=== PATIENT | female | born 1970 | race Hispanic/Latino ===

== ENCOUNTER 2017-06-08 01:53 | Emergency (ER) | payer SELFPAY ==
[~2017-06-08] VITALS: Ht 149.9 cm; Wt 79.6 kg
[2017-06-08 02:44] LABS: INFLUENZA A NONE DETECTED (NONE DETECT); INFLUENZA B NONE DETECTED (NONE DETECT)
[2017-06-08 02:51] LABS: URINE BILIRUBIN - DIPSTICK NEGATIVE (NEGATIVE); URINE BLOOD DIPSTICK TRACE-INTACT (NEGATIVE); URINE COLOR YELLOW; URINE GLUCOSE - DIPSTICK NEGATIVE (NEGATIVE); URINE KETONE NEGATIVE (NEGATIVE); URINE LEUK ESTERASE NEGATIVE (NEGATIVE); URINE NITRITE - DIPSTICK NEGATIVE (Negative); URINE PROTEIN - DIPSTICK NEGATIVE (NEG-TRACE); URINE SPECIFIC GRAVITY 1.025; URINE UROBILINOGEN - DIPSTICK 0.2 E.U./dL (0.2)
[2017-06-08 02:54] LABS: URINE CLARITY SL CLOUDY
[2017-06-08] MEDS ORDERED: ZOFRAN ODT4 MG PO (03:05)
[2017-06-08] MEDS ORDERED: CEPHALEXIN500 MG PO (03:05)
[2017-06-08] MEDS ORDERED: ULTRAM50 M1 PO (03:05)
[2017-06-08 03:52] VITALS: BP 120/73
== END 2017-06-08 03:52 | disposition home or self-care (01) | DRG 153 ==
LOC: ED 01:53
PROVIDERS: Emergency Medicine
DX: J06.9 Acute upper respiratory infection, unspecified (principal); J02.9 Acute pharyngitis, unspecified

== ENCOUNTER 2017-09-11 19:36 | Emergency (ER) | payer SELFPAY ==
[~2017-09-11] VITALS: Ht 147.3 cm; Wt 79.0 kg
[~2017-09-11 19:36] MED LIST: CEPHALEXIN500 MG PO; ULTRAM50 M1 PO; ZOFRAN ODT4 MG PO
[2017-09-11 20:32] LABS: HEMATOCRIT 41.8 % (37.0-47.0); HEMOGLOBIN 13.6 g/dl (12.0-16.0); IMMATURE GRANULOCYTES 0.5 % (0.0-1.0); MEAN CELL VOLUME 86.5 fL CALC (80.0-100.0); MEAN CORPUSCULAR HGB 28.2 pG CALC (26.0-32.0); MEAN CORPUSCULAR HGB CONC 32.5 g/L CALC (32.0-36.0); NEUT# 3.9 thou/uL (2.00-7.15); RED BLOOD COUNT 4.83 mill/uL (4.20-5.60); RED CELL DISTRI WIDTH 12.8 % (11.5-15.5)
[2017-09-11 20:42] LABS: ALBUMIN 4.7 g/dL (3.2-5.0); AMYLASE 46 u/l (30-110); ANION GAP 19 (6-22 (CALC)); BILIRUBIN, TOTAL 0.9 mg/dL (0.0-1.4); BUN 11 mg/dL (7-17); BUN/CREATININE RATIO 23 (12-20 (CALC)); CARBON DIOXIDE 25 mmol/l (22-30); CHLORIDE 102 mmol/l (95-108); CREATININE 0.5 mg/dL (0.5-1.0); GFR > 60 ML/MIN (>=60 (CALC)); GFR FOR AFR.AMER. > 60 ML/MIN (>=60 (CALC)); LIPASE 45 u/l (23-300); POTASSIUM 4.3 mmol/l (3.5-5.1); SGPT/ALT 114 u/l (9-52); SODIUM 142 mmol/l (137-146); TOTAL PROTEIN 9.6 g/dL (6.3-8.2)
[2017-09-11 20:43] LABS: ALKALINE PHOSPHATASE 188 u/l (38-126); SGOT/AST 99 u/l (14-36)
[2017-09-11 21:08] LABS: URINE BILIRUBIN - DIPSTICK NEGATIVE (NEGATIVE); URINE BLOOD DIPSTICK SMALL (NEGATIVE); URINE COLOR YELLOW; URINE GLUCOSE - DIPSTICK NEGATIVE (NEGATIVE); URINE KETONE NEGATIVE (NEGATIVE); URINE LEUK ESTERASE NEGATIVE (NEGATIVE); URINE NITRITE - DIPSTICK NEGATIVE (Negative); URINE PH 7.5 (4.5-8.0); URINE PROTEIN - DIPSTICK TRACE mg/dL (NEG-TRACE); URINE SPECIFIC GRAVITY 1.015
[2017-09-11 21:10] LABS: URINE CLARITY HAZY
[2017-09-11 21:17] LABS: URINE SQUAMOUS EPITHELIAL CELL FEW EPI/hpf (0-FEW)
[2017-09-11] MEDS ORDERED: PROMETHAZINE25 M1 RE (21:42)
[2017-09-11] MEDS ORDERED: TRAMADOL HCL50 MG PO (21:42)
[2017-09-11 22:19] VITALS: BP 132/66
== END 2017-09-11 22:16 | disposition home or self-care (01) | DRG 392 ==
LOC: ED 19:36
PROVIDERS: Family Medicine
DX: A08.4 Viral intestinal infection, unspecified (principal)